=== PATIENT | female | born 1995 | race Two or more races ===

== ENCOUNTER 2020-03-25 16:44 | Emergency (ER) | payer MEDICAID, SELFPAY ==
[~2020-03-25] VITALS: Ht 157.5 cm; Wt 66.2 kg
[2020-03-25 16:47] VITALS: BP 139/83
[2020-03-25 17:51] LABS: HCG UR SG 1.011 (1.003-1.030); MICROSCOPIC AUTO
--- NOTE | 2020-03-25 18:28 | NUR ---
TASK RN: DC EDUCATION PROVIDED, PT DEMONSTRATES UNDERSTANDING. PT AMBULATED STEADILY TO DC WITH RN.
== END 2020-03-25 18:30 | disposition home or self-care (01) ==
LOC: ED 18:20
DX: N30.00 Acute cystitis without hematuria (principal)
CPT/HCPCS: 81001; 81025; 87077; 87086; 87186; 99283